=== PATIENT | male | born 1965 | race Caucasian/White ===

== ENCOUNTER → 2020-08-22 08:00 | Outpatient (CLI) | payer OTHER | END | disposition home or self-care (01) | LOC: LAB 08:00 → ADM 15:15 → EDSTATUS 08-29 15:15 → AMB-ENDOS 08-29 15:15 | PROVIDERS: ATTEND Colon & Rectal Surgery | DX: U07.1 COVID-19 (principal); K61.2 Anorectal abscess; Z12.11 Encounter for screening for malignant neoplasm of colon ==